=== PATIENT | female | born 1960 | race African-American/Black ===

== ENCOUNTER 2020-07-25 16:10 | Emergency (ER) | payer SELFPAY ==
[~2020-07-25] VITALS: Ht 172.7 cm; Wt 65.0 kg
[2020-07-25] MEDS ORDERED: SODIUM CHLORIDE 0.9% 1,000 ML IV ONE (18:45)
[2020-07-25] MEDS ORDERED: ONDANSETRON HCL 4MG/2ML INJ IV ONE (18:45)
[2020-07-25] MEDS ORDERED: MORPHINE SULFATE 4 MG/ML CPJ (NOT FOR IM USE) IV ONE (18:45)
[2020-07-25] MEDS ORDERED: TETANUS AND DIPHTHERIA TOX/PF 0.5ML SYR (ADULT) IM ONE (19:00)
[2020-07-25 19:28] LABS: EOSINOPHILS % 1.5 % (0.0-5.0); HEMATOCRIT. 43.2 % (36.0-48.0); HEMOGLOBIN. 13.9 g/dL (12.0-16.0); LYMPHOCYTES % 22.4 % (20.0-50.0); MEAN CORPUSCULAR HEMOGLOBIN 26.6 pg (28.0-32.0); MEAN CORPUSCULAR VOLUME 82.9 fL (81.0-99.0); MEAN PLATELET VOLUME 8.5 fl (7.4-10.4); MONOCYTES % 7.1 % (2.0-8.0); PLATELET 236 x1000/uL (130-400); RED BLOOD CELL COUNT 5.21 mill/uL (4.2-5.4)
[2020-07-25 19:39] LABS: PARTIAL THROMBOPLASTIN TIME 27.9 sec (23.4-31.0); PROTHROMBIN TIME 10.4 sec (9.6-11.0)
[2020-07-25 19:40] LABS: CHLORIDE 104 mEq/L (98-107)
[2020-07-25] MEDS ORDERED: TETANUS, DIPHTHERIA, PERTUSSIS VAC/PF 0.5ML (>7YR OLD) IM ONE (19:45)
[2020-07-25] MEDS ORDERED: MORPHINE SULFATE 4 MG/ML CPJ (NOT FOR IM USE) IV PRN (22:30)
[2020-07-26] MEDS ORDERED: MORPHINE SULFATE 4 MG/ML CPJ (NOT FOR IM USE) IV ONE (06:30)
[2020-07-26 08:30] VITALS: BP 191/106
== END 2020-07-26 08:57 | disposition short-term general hospital (02) ==
LOC: ER 16:10
DX: S02.32XB Fracture of orbital floor, left side, initial encounter for open fracture (principal); S02.832B Fracture of medial orbital wall, left side, initial encounter for open fracture; M54.2 Cervicalgia; M54.89 Other dorsalgia; Y04.2XXA Assault by strike against or bumped into by another person, initial encounter; Y93.89 Activity, other specified; Y92.488 Other paved roadways as the place of occurrence of the external cause; Z23 Encounter for immunization; R03.0 Elevated blood-pressure reading, without diagnosis of hypertension
CPT/HCPCS: 36415; 70450; 70486; 71045; 72125; 80053; 85025; 85610; 85730; 90471; 90715; 96361; 96374; 96375; 96376; 99285; J2270; J2405; J7030; 90714

== ENCOUNTER 2022-05-10 11:29 | Emergency (ER) | payer MEDICAID ==
[~2022-05-10] VITALS: Ht 160 cm; Wt 70.0 kg
[2022-05-10] MEDS ORDERED: HYDROCODONE/ACETAMINOPHEN 5/325MG TABLET PO ONE (12:00)
[2022-05-10] MEDS ORDERED: IPRATROPIUM/ALBUTEROL 0.5-3(2.5)MG/3ML NEB HHN PRN (14:45)
[2022-05-10] MEDS ORDERED: HYDROCODONE/ACETAMINOPHEN 5/325MG TABLET PO NR (15:00)
[2022-05-10 15:57] VITALS: BP 152/94
[2022-05-10] MEDS ORDERED: IPRATROPIUM/ALBUTEROL 0.5-3(2.5)MG/3ML NEB HHN SCH (18:00)
[2022-05-10] MEDS ORDERED: BUDESONIDE 0.5MG/2ML NEB HHN SCH (18:00)
== END 2022-05-10 18:01 | disposition home or self-care (01) ==
LOC: ER 11:29
DX: S06.0X0A Concussion without loss of consciousness, initial encounter (principal); M54.59 Other low back pain; M54.2 Cervicalgia; M54.6 Pain in thoracic spine; R10.2 Pelvic and perineal pain; Y93.01 Activity, walking, marching and hiking; R26.2 Difficulty in walking, not elsewhere classified; Z99.89 Dependence on other enabling machines and devices; W01.198A Fall on same level from slipping, tripping and stumbling with subsequent striking against other object, initial encounter; Y92.198 Other place in other specified residential institution as the place of occurrence of the external cause; J44.9 Chronic obstructive pulmonary disease, unspecified; J45.909 Unspecified asthma, uncomplicated; M79.7 Fibromyalgia
CPT/HCPCS: 71045; 72128; 72131; 72170; 99284